=== PATIENT | male | born 1960 | race American Indian/Alaskan Native ===

== ENCOUNTER 2017-03-23 11:10 | Outpatient (CLI) | payer OTHER ==
--- NOTE | 2017-03-23 12:56 | Ultrasound Report ---
ULTRASOUND RENAL INDICATION: Chronic kidney disease. COMPARISON: None similar. FINDINGS: Renal sonography suggests top normal/borderline increased renal cortical echogenicity. Grossly preserved contours. No hydronephrosis. Somewhat echogenic/coarse imaged liver. RIGHT KIDNEY measures 13.3 x 7.2 x 7 cm with cortical thickness of 1.3 cm. LEFT KIDNEY estimated at 13.7 x 7.6 x 8.3 cm with cortical thickness of 2.1 cm. A 2.3 cm left interpolar renal cyst noted with possible peripheral septations or smaller adjacent cysts as on image 16. URINARY BLADDER suboptimally distended and assessed, though grossly unremarkable, in so far seen. CONCLUSION: Left renal cyst and slight underlying medical renal disease possible sonographically without acute renal abnormality. Please correlate. Thank you for the opportunity to participate in this patient's care.
== END 2017-03-23 11:11 | disposition home or self-care (01) ==
LOC: US 11:10
PROVIDERS: ATTEND Internal Medicine Nephrology
DX: I12.9 Hypertensive chronic kidney disease with stage 1 through stage 4 chronic kidney disease, or unspecified chronic kidney disease (principal); N18.3 Chronic kidney disease, stage 3 (moderate); M32.9 Systemic lupus erythematosus, unspecified; N28.1 Cyst of kidney, acquired; N32.89 Other specified disorders of bladder
CPT/HCPCS: 76770